=== PATIENT | female | born 1990 | race Caucasian/White ===

== ENCOUNTER → 2017-06-11 | Day surgery (SDC) | payer OTHER ==
[~2017-06-11] MED LIST: PROPOFOL 500 MG/50 ML BTL IV ONE
--- NOTE | 2017-06-11 08:42 | GIPROC ---
[facility] [address] [facility], [address] EGD PROCEDURE REPORT EXAM DATE: 06/11/2017 PATIENT NAME: Abdullahi Arellano MR #: [id number] BIRTHDATE: 1990 ATTENDING: Dave Akhtar MD ORDER #: [id number] CUSTOMER DEVELOPMENT MANAGER: Brandyn Pennington RN STATUS: outpatient INDICATIONS: The patient is a 27 yr old female here for an EGD due to Preoperative assessment PROCEDURE PERFORMED: EGD w/ biopsy MEDICATIONS: None, Per Anesthesia, None, and Per Anesthesia. TOPICAL ANESTHETIC: CONSENT: The patient understands the risks and benefits of the procedure and understands that these risks include, but are not limited to: sedation, allergic reaction, infection, perforation and/or bleeding. Alternative means of evaluation and treatment include, among others: physical exam, x-rays, and/or surgical intervention. The patient elects to proceed with this endoscopic procedure. medical equipment was checked for proper function. Hand hygiene and appropriate measures for infection prevention was taken. After the risks, benefits and alternatives of the procedure were thoroughly explained, Informed consent was verified, confirmed and timeout was successfully executed by the treatment team. The patient was anesthetized with topical anesthesia and the EG-[id number] ([id number]) endoscope was introduced through the mouth and advanced to the second portion of the duodenum. Retroflexed views revealed no abnormalities The gastroscope was then slowly withdrawn and removed. ESOPHAGUS: There was LA Class A esophagitis noted. Multiple biopsies were performed. The endoscopy was otherwise normal. STOMACH: There was mild gastritis in the gastric antrum. Multiple biopsies were performed. ADVERSE EVENTS: There were no complications. IMPRESSIONS: 1. There was LA Class A esophagitis noted; multiple biopsies were performed 2. Normal endoscopy otherwise 3. There was mild gastritis in the gastric antrum; multiple biopsies were performed 4. Retroflexed views revealed no abnormalities RECOMMENDATIONS: 1. Await biopsy results. Biopsy results will not be ready for 7-10 days. If you don't hear from us in two weeks, call our office for biopsy results. 2. Follow-up: GI clinic 3 week(s) 3. Omeprazole 20 mg Q am PATIENT CONDITION: stable DISPOSITION: Home REPEAT EXAM: Dave Akhtar MD eSigned: Dave Akhtar MD 06/11/2017 8:42 AM cc: Irwin Arce [facility] [place]
== END | disposition home or self-care (01) ==
LOC: ESDC 07:20
PROVIDERS: ATTEND Internal Medicine Gastroenterology
DX: K20.9 Esophagitis, unspecified (principal); K29.70 Gastritis, unspecified, without bleeding; E66.09 Other obesity due to excess calories
CPT/HCPCS: 00740; 43239; 88305; 88312; J3010